=== PATIENT | male | born 1950 | race Caucasian/White ===

== ENCOUNTER → 2021-06-26 09:23 | Outpatient (CLI) | payer OTHER, SELFPAY ==
[2021-06-26 13:59] LABS: COVID19 -Nasal RAPID Negative (Negative)
== END ==
PROVIDERS: Visit Provider Family Medicine Sleep Medicine
DX: Z20.822 Contact with and (suspected) exposure to COVID-19 (principal)
CPT/HCPCS: 87635; C9803

== ENCOUNTER → 2021-06-28 08:51 | Outpatient (CLI) | payer OTHER, SELFPAY ==
--- NOTE | 2021-06-28 | DI.ECHO.S_ITS ---
[facility]---------+ [facility] +---------+ : : [address] : : : : [id number] : : : : Phone: [phone]+ Echocardiogram Report + + :Name: KARLENE POTTER Study Date: 06/28/2021 Height: 67 in : :[facility] ReadingLocation: Weight: 204 lb : : Gender: Male BSA: 2.0 m2 : :: 1950 Age: 70 yrs BP: 130/80 mmHg: :Reason For Study: Chest pain : :Ordering Physician: Lorna : :Jayed Performed By: Herbie Barrett : :Referring: LORNA DONOHUE E : + + Interpretation Summary The ejection fraction is estimated to be 60-65%. Diastolic parameters suggest probable normal left ventricular diastolic function and normal filling pressures. Borderline right ventricular enlargement. The right ventricular systolic function is normal. There is mild aortic regurgitation. Pulmonary artery pressures cannot be estimated because of the lack of a measurable TR jet velocity. Procedure: A two-dimensional transthoracic echocardiogram with color flow and Doppler was performed. The study quality was technically adequate. There is no prior echocardiogram noted for this patient. The patient was in normal sinus rhythm during the exam. Left Ventricle: The left ventricle is normal in size and wall thickness. Left ventricular systolic function appears normal without focal wall motion abnormalities. The ejection fraction is estimated to be 60-65%. Diastolic parameters suggest probable normal left ventricular diastolic function and normal filling pressures. Right Ventricle: Borderline right ventricular enlargement. The right ventricular systolic function is normal. Atria: The left atrial size is normal. Right atrium is small. Question small PFO. Mitral Valve: The mitral valve is normal. There is trace mitral regurgitation. Aortic Valve: The aortic valve is trileaflet. The aortic valve opens well. There is minimally reduced leaflet mobility. There is no aortic valve stenosis. There is mild aortic regurgitation. Tricuspid Valve: The tricuspid valve is normal. There is trace tricuspid regurgitation. Pulmonary artery pressures cannot be estimated because of the lack of a measurable TR jet velocity. Pulmonic Valve: The pulmonic valve leaflets are thin and pliable; valve motion is normal. There is a trace or physiologic amount of pulmonic regurgitation. Great Vessels: The aortic root is normal size. The ascending aorta is mildly enlarged. The aortic arch is mildly enlarged. IVC not well visualized, but probablt normal. Pericardium/ Pleura There is no pericardial effusion. There is no pleural effusion. MMode/2D Measurements & Calculations LVIDd: 4.4 cm LVOT diam: 2.2 cm LVIDs: 2.5 cm Ao root diam: 3.4 cm FS: 43.3 % asc Aorta Diam: 4.2 cm IVSd: 0.70 cm Ao Arch Diam (Prox Trans): 3.6 cm LVPWd: 0.82 cm LV robertson. diameter/BSA (cm/m^2): 2.2 LV sys. diameter/BSA (cm/m^2): 1.2 LA A2 area: 20.7 cm2 RA long axis: 5.5 cm LA A4 area: 16.2 cm2 RA area: 10.2 cm2 LA length (vol): 5.1 cm RA vol: 16.0 ml LA vol: 55.4 ml RA : 7.8 ml/m2 LA vol index: 27.2 ml/m2 TAPSE: 2.5 cm Doppler Measurements & Calculations Ao V2 max: 177.1 cm/sec LVOT Max Medhat: 119.5 cm/sec Ao V2 mean: 127.4 cm/sec LV V1 max P.7 mmHg Ao max P.5 mmHg LV V1 VTI: 24.8 cm Ao mean P.0 mmHg SKYLER(I,D): 2.7 cm2 Ao V2 VTI: 33.7 cm SKYLER(V,D): 2.5 cm2 sev ratio: 0.74 SKLYER indexed to BSA (cm^2/m^2): 1.3 MV E max medhat: 72.1 cm/sec TR max medhat: 227.3 cm/sec MV A max medhat: 67.2 cm/sec TR max P.7 mmHg MV E/A: 1.1 Med Peak E' Medhat: 6.2 cm/sec E/E' med: 11.7 Lat Peak E' Medhat: 11.0 cm/sec E/E' lat: 6.6 E/e' average: 9.1 MV dec time: 0.29 sec SV(LVOT): 91.4 ml Reading Physician:02:50 PM
--- NOTE | 2021-07-01 17:39 | DI.NM.S_ITS ---
DATE OF SERVICE: 06/28/2021 PROCEDURE: Exercise perfusion study. INDICATION: Chest pain with underlying hypertension and hyperlipidemia. RADIOPHARMACEUTICAL: 25.5 millicurie technetium-99m Myoview IV was injected at stress and 12.1 millicurie technetium-99m Myoview IV was injected at rest. This was one-day protocol. CARDIAC STRESS: The patient underwent exercise perfusion study under the supervision of an attending staff using standard Sree protocol. The patient walked on Sree protocol for 6 minutes and 11 seconds, achieved maximum heart rate of 148, which was 100 percent of target heart rate. The patient has a baseline blood pressure of 136/88 mmHg. Peak blood pressure 174/96 mmHg. Baseline rhythm was sinus. During stress, no convincing ischemic changes seen. The patient has some PACs. The patient achieved 7 METs of workload. Functional aerobic impairment positive 5 percent. No chest pain or anginal symptoms. RAW DATA: Raw data there is increased subdiaphragmatic activity. GATED STUDY: Resting LV ejection fraction 73 and stress LV ejection fraction 74 percent. No obvious wall motion abnormalities. Resting end-diastolic volume 99 mL. TID ratio 0.74, which is within normal limits. Lung/heart ratio 0.29, which is within normal limits. MYOCARDIAL PERFUSION SCAN: Stress supine, resting supine and stress prone images were compared to each other. Stress supine and resting supine images reveal small size, mildly decreased perfusion of basal inferolateral wall, which got resolved during prone images suggestive of tissue attenuation artifact. No convincing ischemia or infarction pattern. CONCLUSION: I will call this study likely a normal myocardial perfusion study with evidence of diaphragmatic tissue attenuation artifact ,which got resolved during stress prone images. Overall preserved left ventricular function. Mildly hypertensive blood pressure response. LAINA positive 5 percent. No anginal symptoms. Overall, this is a low-risk myocardial perfusion scan. Phong Lauren - VANNA/mina/jabier doc#: [id number]/job#: [id number] dd: 07/01/2021 12:58:00 dt: 07/01/2021 17:23:00 DICTATING MD/COPIES TO: Kellee Aleman MD COPIES MNE: TOÑO;
== END ==
PROVIDERS: PCP Nurse Practitioner; Referring Provider Internal Medicine Cardiovascular Disease; Visit Provider Internal Medicine Cardiovascular Disease
DX: I35.1 Nonrheumatic aortic (valve) insufficiency (principal); I77.89 Other specified disorders of arteries and arterioles; R07.9 Chest pain, unspecified; I10 Essential (primary) hypertension; E78.5 Hyperlipidemia, unspecified
CPT/HCPCS: 78452; 93017; 93306; A9502

== ENCOUNTER → 2022-03-14 | Outpatient (CLI) | payer OTHER, SELFPAY ==
--- NOTE | 2022-03-14 | DI.ECHO.S_ITS ---
[facility]---------+ [facility] +---------+ : : [address] : [address] : : : : [id number] : : : : Phone: [phone]---------+ Echocardiogram Report + + :Name: KARLENE POTTER Study Date: 03/14/2022 Height: 67 in : :[facility] ReadingLocation: Weight: 195 lb : : Gender: Male BSA: 2.0 m2 : :: 1950 Age: 71 yrs BP: 120/75 mmHg: :Reason For Study: PERICARDITIS : :Ordering Physician: LEO, : :LORNA Burns D.O. Performed By: Bre Salmeron : :Referring: LORNA DONOHUE D.O. : + + Interpretation Summary The ejection fraction is estimated to be 60-65%. Diastolic parameters suggest probable normal left ventricular diastolic function and normal filling pressures. The right ventricle is mildly dilated. The right ventricular systolic function is normal. There is mild aortic regurgitation. There is mild tricuspid regurgitation. The right ventricular systolic pressure is estimated to be at least 27 mmHg based on an estimated right atrial pressure of 3 mm Hg. The ascending aorta is mildly enlarged. Compared to the prior study dated 06/28/2021, no significant change. Procedure: A two-dimensional transthoracic echocardiogram with color flow and Doppler was performed. The study quality was technically adequate. Comparison is made with the echocardiogram of 06/28/2021. The patient was in sinus bradycardia with heart rates between 47-53 bpm during the exam. Left Ventricle: The left ventricle is normal in size and wall thickness. The ejection fraction is estimated to be 60-65%. Diastolic parameters suggest probable normal left ventricular diastolic function and normal filling pressures. Right Ventricle: The right ventricle is mildly dilated. The right ventricular systolic function is normal. Atria: The left atrial size is normal. Right atrial size is normal. There is no Doppler evidence for an interatrial shunt. Mitral Valve: The mitral valve is normal in structure and function. There is trace mitral regurgitation. Aortic Valve: The aortic valve is trileaflet. The aortic valve opens well. There is no aortic valve stenosis. There is mild aortic regurgitation. Tricuspid Valve: The tricuspid valve is normal in structure and function. There is mild tricuspid regurgitation. The right ventricular systolic pressure is estimated to be at least 27 mmHg based on an estimated right atrial pressure of 3 mm Hg. Pulmonic Valve: The pulmonic valve leaflets are thin and pliable; valve motion is normal. There is trace pulmonic regurgitation. Great Vessels: The aortic root is normal size. The ascending aorta is mildly enlarged. The IVC is of normal diameter and collapses greater than 50% with a sniff. This suggests a low right atrial pressure of 3 mm Hg. Pericardium/ Pleura There is no pericardial effusion. There is no pleural effusion. MMode/2D Measurements & Calculations LVIDd: 4.6 cm LVOT diam: 2.1 cm LVIDs: 2.8 cm Ao root diam: 3.6 cm FS: 39.9 % asc Aorta Diam: 4.2 cm IVSd: 1.1 cm Ao Arch Diam (Prox Trans): 3.4 cm LVPWd: 0.95 cm LV robertson. diameter/BSA (cm/m^2): 2.3 LV sys. diameter/BSA (cm/m^2): 1.4 LA A2 area: 21.5 cm2 RA long axis: 4.9 cm LA A4 area: 14.5 cm2 RA area: 13.2 cm2 LA length (vol): 4.8 cm RA vol: 30.2 ml LA vol: 55.6 ml RA : 15.1 ml/m2 LA vol index: 27.8 ml/m2 IVC diam: 1.4 cm RVD1 (basal): 4.4 cm TAPSE: 2.1 cm Doppler Measurements & Calculations Ao V2 max: 174.0 cm/sec LVOT Max Medhat: 105.1 cm/sec Ao V2 mean: 126.1 cm/sec LV V1 max P.4 mmHg Ao max P.1 mmHg LV V1 VTI: 25.7 cm Ao mean P.9 mmHg SKYLER(I,D): 2.1 cm2 Ao V2 VTI: 41.8 cm SKYLER(V,D): 2.1 cm2 sev ratio: 0.62 SKYLER indexed to BSA (cm^2/m^2): 1.1 AI P1/2t: 1652 msec AI dec slope: 44.1 cm/sec2 MV E max medhat: 65.7 cm/sec TR max medhat: 244.3 cm/sec MV A max medhat: 40.7 cm/sec TR max P.9 mmHg MV E/A: 1.6 PA V2 max: 98.5 cm/sec Med Peak E' Medhat: 6.7 cm/sec PA V2 mean: 63.0 cm/sec E/E' med: 9.8 PA mean P.8 mmHg Lat Peak E' Medhat: 10.3 cm/sec PA pr(Accel): 48.2 mmHg E/E' lat: 6.4 E/e' average: 8.1 MV dec time: 0.35 sec SV(LVOT): 88.6 ml Reading Physician:04:55 PM
== END ==
LOC: ECHO 12:17
PROVIDERS: PCP Nurse Practitioner; Referring Provider Internal Medicine Cardiovascular Disease; Visit Provider Internal Medicine Cardiovascular Disease
DX: I08.2 Rheumatic disorders of both aortic and tricuspid valves (principal); I31.9 Disease of pericardium, unspecified; I77.89 Other specified disorders of arteries and arterioles
CPT/HCPCS: 93306

== ENCOUNTER 2022-12-08 09:03 | Day surgery (SDC) | payer OTHER, SELFPAY ==
[2022-12-08 09:22] VITALS: BMI 30.5
[2022-12-08 09:27] VITALS: BP 134/87; PULSE 78; RESP 16; TEMP 36.5; O2SAT 96
[2022-12-08] MEDS: LACTATED RINGERS 1,000 ML 42 ML IV (09:35)
--- NOTE | 2022-12-08 09:54 | PM.HP.1 ---
History of Present Illness History of Present Illness Date Patient Seen: 12/08/22 Time Patient Seen: 09:54 Chief complaint: SDC Narrative: History of rectal bleeding. I reviewed the recent clinic note. No significant changes. [facility] Social History household members: spouse Smoking Status: Former smoker alcohol intake: current Meds Home Medications and Allergies Home Medications Medication Instructions Recorded Confirmed Type amlodipine 10 mg tablet 10 mg PO DAILY 12/08/22 12/08/22 History atorvastatin 40 mg tablet 40 mg PO DAILY 12/08/22 12/08/22 History chlorthalidone 25 mg tablet 25 mg PO DAILY 12/08/22 12/08/22 History metoprolol tartrate 25 mg tablet 25 mg PO BID 12/08/22 12/08/22 History potassium chloride 10 mEq 10 meq PO DAILY 12/08/22 12/08/22 History tablet,extended release Allergies Allergy/AdvReac Type Severity Reaction Status Date / Time No Known Drug Allergies Allergy Verified 12/08/22 09:19 Review of Systems Review of Systems ROS: Yes All systems reviewed with the patient and are negative except as otherwise documented Exam Vital Signs (past 8 hours): - 12/08/22 09:27 Temperature 97.7 F Pulse Rate 78 Respiratory Rate 16 Blood Pressure 134/87 Pulse Oximetry 96 Oxygen Delivery Method Room Air Oxygen Delivery Method Room Air Const General: cooperative HENMT Head: normal to inspection Eyes General: appearance normal, both eyes and all related structures Neck Neck: normal visual inspection Chest Chest: normal inspection of the chest Resp Effort & Inspection: normal respiratory effort Cardio Rate: regular rate GI Inspection: normal to inspection Skin General: no rashes or lesions noted Neuro General: patient alert and patient awake Extrem General: normal to inspection and no pedal edema Psych Appearance: grossly normal Assessment & Plan Assessment & Plan narrative: 72-year-old male with a history of intermittent sporadic red blood per rectum. Updated colonoscopy is pursued today.
--- NOTE | 2022-12-08 09:55 | PM.PREOP ---
Pre-operative Note Interval Note History & Physical reviewed/Exam performed by Physician: Yes Changes to H&P: No ASA Class (for procedural sedation): II
--- NOTE | 2022-12-08 10:50 | PM.OP.COLON ---
Operative Date/Time/Diagnoses Date of procedure: 12/08/22 Time of procedure: 10:51 Pre-op diagnosis: Rectal bleeding Post-op diagnosis: same Procedure & Clinicians Study performed: Colonoscopy Same procedure as scheduled: Yes Indications: Rectal bleeding Surgeon: Alli Isabel Procedure Notes SCOAP/Timeout: Done Procedure in detail: After the risks and benefits were explained, written and verbal informed consent was obtained. The patient was brought into the procedure room and placed into the left lateral decubitus position. Please see anesthesia notes for sedation details. Digital rectal examination was accomplished. The scope was introduced into the patient and advanced under direct visualization to the cecum as identified by the appendiceal orifice and ileocecal valve. The scope was slowly withdrawn to carefully examine the mucosa for any defects or lesions. Comprehensive imaging was accomplished throughout the rectum including the dentate line. The colon was decompressed, the scope was then removed from the patient who tolerated the procedure well. Adult colonoscope Bowel prep adequate Scope withdrawal time: 7 minutes Sedation minutes: 20 Specimen(s): none sent Impression: Patient had grade 2 nonthrombosed nonbleeding hemorrhoids. In the distal rectum approaching the hemorrhoidal cushions was evidence of scattered telangiectasia likely from prior radiation therapy in the context of prostate cancer history. No dominant lesion and no active bleeding. The remainder of the colon was unremarkable. Endoscopic diagnosis 1. Grade 2 internal hemorrhoids 2. 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 Fiber supplement for soft regular stools. 2. Consider a course of 20 cc of a 10% sucralfate suspension enema twice daily x6 weeks. 3. Despite these measures, should there be recurrence of moderate volume bleeding, consider repeat endoscopic intervention for APC ablation of the telangiectasia. Disposition: PACU
[2022-12-08 10:53] VITALS: BP 88/62; PULSE 62; RESP 11; TEMP 36.2; O2SAT 99
[2022-12-08 10:55] VITALS: BP 102/62
[2022-12-08 11:01] VITALS: BP 111/77; PULSE 76; RESP 15; TEMP 36.6; O2SAT 97
[2022-12-08 11:16] VITALS: BP 126/73; PULSE 64; RESP 14; TEMP 36.2; O2SAT 98
== END 2022-12-08 11:21 | disposition home or self-care (01) ==
PROVIDERS: PCP Nurse Practitioner; Referring Provider Internal Medicine Gastroenterology; Visit Provider Internal Medicine Gastroenterology
PROC: 0DJD8ZZ Inspection of Lower Intestinal Tract, Via Natural or Artificial Opening Endoscopic (ICD-10-PCS; CPT 45378; principal; 2022-12-08 10:30)
DX: K62.5 Hemorrhage of anus and rectum (principal); K64.1 Second degree hemorrhoids; I78.1 Nevus, non-neoplastic; Z85.46 Personal history of malignant neoplasm of prostate
CPT/HCPCS: 45378; J2704

== ENCOUNTER → 2024-06-22 12:13 | Outpatient (CLI) | payer OTHER, SELFPAY ==
--- NOTE | 2024-06-22 12:15 | DI.CT.S_ITS ---
PROCEDURE: CT ANGIO CHEST INDICATIONS: AORTIC ANEURYSM SUSPECTED TECHNIQUE: After the administration of intravenous contrast, 2.5 mm thick sections acquired from the lung apices to the posterior lung bases. Maximum intensity projection (MIP) oblique sagittal reformats were then acquired parallel to the aortic arch. For radiation dose reduction, the following was used: automated exposure control. COMPARISON: None. FINDINGS: Image quality: Excellent. Aorta: Aorta and great vessels are normal in size. No mural irregularity or contrast extravasation to suggest aortic injury. Lower Neck: No enlarged lymph nodes. Thyroid: No thyroid nodules which require sonographic follow up, per consensus guidelines. Axillae: No enlarged lymph nodes. Chest Wall: Unremarkable. Bones: Unremarkable. Lungs and Pleura: No pneumothorax or pleural effusions. No consolidation or suspicious nodules. Heart: Heart size is normal. No pericardial effusion. [id number] scattered three-vessel coronary artery calcifications. Thoracic Vessels: Pulmonary arteries demonstrate normal size. The ascending thoracic aorta measures 4.3 cm in diameter, slightly enlarged. Mediastinum and Kelli: No enlarged lymph nodes. Esophagus: No wall thickening. Small sliding hiatal hernia. Upper Abdomen: Visualized upper abdomen solid organs and bowel loops appear normal. IMPRESSION: The ascending thoracic aorta measures up to 4.3 cm in diameter consistent with ectasia, but not yet meeting the 4.5- 5 cm aneurysmal dilatation threshold. Dictated by: To Kim M.D. on 06/22/2024 at 18:22 Approved by: To Kim M.D. on 06/22/2024 at 19:11
[2024-06-22 12:42] LABS: Estimated Glomerular Filt Rate > 60 mL/min (>60)
== END ==
LOC: CT 12:15
PROVIDERS: Radiology Diagnostic Radiology; PCP Nurse Practitioner; Referring Provider Internal Medicine Cardiovascular Disease; Visit Provider Internal Medicine Cardiovascular Disease
DX: I71.21 Aneurysm of the ascending aorta, without rupture (principal); I25.10 Atherosclerotic heart disease of native coronary artery without angina pectoris; K44.9 Diaphragmatic hernia without obstruction or gangrene
CPT/HCPCS: 36415; 71275; 82565; Q9967